=== PATIENT | female | born 1940 | race Caucasian/White ===

== ENCOUNTER 2017-06-25 18:58 | Emergency (ER) | payer MEDICARE, OTHER ==
[~2017-06-25] VITALS: Ht 165.1 cm; Wt 70.1 kg
[~2017-06-25 18:58] MED LIST: ASPI81TA2 PO; CALC-686 PO; CITA20TA PO; COU25 PO; COU5 PO; DIG125 PO; FLUT10.62 IH; FURO80TA PO; GLIM4TAB PO; LEVO25TA41 PO; MAGN200T3 PO; METO50TA PO; NORT50CA PO; OMEP20TA86 PO; POTA8CAP10 PO; ROPI1TAB2 PO
--- NOTE | 2017-06-25 19:00 | ED.REPORT ---
HPI-Chest Pain 40 and Over Date of Service Jun 25, 2017 ED Provider: Dr. Salinas Schmidt MD A 76 year old female with a history of hypertension, CAD s/p CABG and pacemaker placement presents to the ED via EMS with cheat pain that began approx. 1 hour prior to arrival. The patient reportedly took one dose of Nitro and aspirin following symptom onset and upon EMS arrival, her pain had completely resolved. She also endorses recent non-productive cough, intermittent fever and chills, and persistent diarrhea that has been chronic for the past few weeks. The patient does not typically experience chest pain and denies similar episodes of pain. She denies any shortness of breath, lower extremity swelling, dysuria, urinary frequency or urinary urgency. Nursing Notes Stated Complaint: CHEST PAIN Nursing Notes Reviewed: Yes Allergies: Coded Allergies: Penicillins (Verified Allergy, Unknown, 06/25/17) diphenhydramine (Verified Allergy, Unknown, 06/25/17) metformin (Verified Allergy, Unknown, 06/25/17) Uncoded Allergies: EPHEDRA (Allergy, Unknown, 06/25/17) Scheduled Aspirin-Expunged Drug, Do Not Renew! (Aspirin-Expunged Drug, Do Not Renew!) 81 Mg Tablet 81 MG PO DAILY Flavio Carb/Vitamin D3-Expunged, Do Not Renew! (Calcium 500 + D-Expunged, Do Not Renew!) 1 Each Tablet 1 EACH PO DAILY Citalopram-Expunged Drug, Do Not Renew! (Citalopram-Expunged Drug, Do Not Renew! ) 20 Mg Tablet 30 MG PO DAILY Digoxin-Expunged Drug, Do Not Renew! (Digoxin-Expunged Drug, Do Not Renew!) 125 Mcg Tablet 62.5 MCG PO 1/2 of 0.125 tab nae Fluticasone-Expunged Drug, Do Not Renew! (Flovent-Expunged Drug, Do Not Renew!) 13 Gm Aer.w.adap 220 MCG IH BID Furosemide-Expunged Drug, Do Not Renew! (Lasix-Expunged Drug, Do Not Renew!) 80 Mg Tablet 80 MG PO BID Glimepiride-Expunged Drug, Do Not Renew! (Glimepiride-Expunged Drug, Do Not Renew!) 4 Mg Tablet 4 MG PO DAILY Levothyroxine-Expunged Drug, Do Not Renew! (Levoxyl-Expunged Drug, Do Not Renew! ) 25 Mcg Tablet 25 MCG PO DAILY Magnesium-Expunged Drug, Do Not Renew! (Magnesium Oxide-Expunged Drug, Do Not Renew!) 200 Mg Tablet 400 MG PO BID Metoprolol Tart-Expunged Drug, Do Not Renew! (Metoprolol Tart-Expunged Drug, Do Not Renew!) 50 Mg Tablet 50 MG PO BID Nortriptyline-Expunged Drug, Do Not Renew! (Nortriptyline-Expunged Drug, Do Not Renew!) 50 Mg Capsule 50 MG PO qhs Omeprazole-Expunged Drug, Do Not Renew! (Omeprazole-Expunged Drug, Do Not Renew! ) 20 Mg Tablet.dr 20 MG PO BID Potassium Chl-Expunged Drug, Do Not Renew! (Potassium Chl-Expunged Drug, Do Not Renew!) 8 Meq Capsule.sa 20 MEQ PO DAILY Ropinirole-Expunged Drug, Do Not Renew! (Requip-Expunged Drug, Do Not Renew!) 1 Mg Tab 1 MG PO BID Warfarin Inactive Drug Do Not Use (Coumadin Inactive Drug Do Not Use) 2.5 Mg Tablet 2.5 MG PO , Warfarin Inactive Drug Do Not Use (Coumadin Inactive Drug Do Not Use) 5 Mg Tablet 5 MG PO ,,T,S,S General Time Seen by MD: 19:00 Chief Complaint Chest pain Hx Obtained From: Patient, Spouse, EMS Arrived By: Ambulance Sudden in Onset?: No Onset Occurred: 1 - 4 hours ago Symptom Duration: 1 - 15 minutes Location: : Chest left: Chest right Quality: Aching, Painful Radiation: : Does not radiate Migration/Movement: Reports: None Severity: Current: Mild Severity: Maximum: Moderate Associated with: Reports: Cough, non-productive, Fever, Denies: Shortness of Breath Pertinent Negative: Pt denies other symptoms Recent Healthcare: No recent doctor visit, No recent hospitalization Similar Sx Previous: No Risk Factors )( CAD Risk Stratification Known CAD Risk factors reviewed )( TAD Risk Stratification Risk factors reviewed )( PE Risk Stratification Risk factors reviewed Past Medical History Past Medical History Notes: Cardiology - Jonatan Past Medical History CAD Hypertension Pacemaker Past Surgical History Reports: CABG Reports: Pacemaker insertion Smoking History Never Smoker Social History Alcohol Use: Denies alcohol use Drug Use: Denies drug use Other Social History: Good social support, , Local resident Ambulatory Status Independent Review of Systems Constitutional: Reports: Chills, Fever (subjective) Respiratory: Reports: Non-productive cough, Denies: Shortness of breath Cardiovascular: Reports: Chest pain GI: Reports: Diarrhea (chronic) Musculoskeletal: Denies: Extremity swelling, Joint swelling Complete sys rev & neg: except as marked. Female: Denies: Dysuria, Urinary frequency, Urinary urgency Physical Exam Initial Vital Signs Vital Signs (First) Date Time Temp Pulse Resp B/P Pulse Ox O2 Delivery O2 Flow Rate FiO2 06/25/17 19:40 36.8 72 19 112/58 95 Room Air Initial VS: Reviewed Head / Eyes: Atraumatic, Normocephalic, PERRL Neck: Supple, Non-tender, Full range of motion Extremities: Vascular intact, Neuro intact, No swelling, No tenderness Skin: Warm, Dry, No cyanosis Neurologic: Alert, Oriented, Nonfocal Psychiatric: Mood/affect normal, Behavior normal, Normal thought content General/Constitutional: Awake, Alert, No acute distress Respiratory / Chest: Atraumatic, Breath sounds NL, Breath sounds = bilat, No respiratory distress Cardiovascular: Heart rate NL, Regular rhythm, Heart sounds NL, Peripheral circulation NL, Pulses = bilaterally Abdomen: Atraumatic, Soft, Non-tender, No guarding, No rebound Lower Extremity / Pelvis / MS: Atraumatic, Inspection NL, No swelling, Non- tender, Neurologic intact, Vascular intact Neurologic: Oriented X3, Speech NL, No motor deficits, No sensory deficits, CN II - XII intact Upper Extremity / MS: Atraumatic, Inspection NL, Neurologic intact, Vascular intact Interpretation & Diagnostics Lab Results Interpretation Result Diagram: 06/25/17199906/25/171999 Test 06/25/17 20:00 White Blood Count 6.2th/mm3 (3.8-10.1) Red Blood Count 4.27mil/mm3 (3.90-5.20) Hemoglobin 13.1g/dL (12.0-15.6) Hematocrit 39.1% (35.0-46.0) Mean Corpuscular Volume 91.6fL (81-100) Mean Corpuscular Hemoglobin 30.7pg (27.0-35.0) Mean Corpuscular Hemoglobin Concent 33.5% (32.0-37.0) Red Cell Distribution Width 13.6% (12.3-15.4) Platelet Count 174bil/L (150-400) Neutrophils (%) (Auto) 62.1% (40-74) Lymphocytes (%) (Auto) 22.2% (14-46) Monocytes (%) (Auto) 12.0% (4-12) Eosinophils (%) (Auto) 3.0% (0-5) Basophils (%) (Auto) 0.5% (0-3) Prothrombin Time 27.4sec (8.1-12.5) Prothromb Time International Ratio 2.51ratio Sodium Level 139mEq/L (134-144) Potassium Level 4.2mEq/L (3.5-5.2) Chloride Level 98mEq/L (97-108) Carbon Dioxide Level 29mmol/L (18-29) Blood Urea Nitrogen 23mg/dL (8-27) Creatinine 1.11mg/dL (0.57-1.00) Estimat Glomerular Filtration Rate 68mL/min (>59) Glucose Level 170mg/dL (60-99) Calcium Level 8.7mg/dL (8.5-10.1) Magnesium Level 2.0mg/dL (1.6-2.6) Total Bilirubin 0.6mg/dL (0.0-1.2) Aspartate Amino Transf (AST/SGOT) 24U/L (0-50) Alanine Aminotransferase (ALT/SGPT) 21U/L (0-32) Alkaline Phosphatase 70U/L (25-165) Troponin T < 0.010ug/L (0.0-0.011) Pro-B-Type Natriuretic Peptide 2423pg/mL (0-738) Total Protein 6.3g/dL (6.4-8.4) Albumin 4.1g/dL (3.4-5.0) Thyroid Stimulating Hormone (TSH) 2.830uIU/mL (0.450-4.500) ECG Interpretation ECG Interpretation: Afib/Atrial flutter V-paced rhythm Rate 76 bpm Time: 19:25 Interpreted by: ED physician X-Ray Chest Interpretation Chest Xray Interpretation: IMPRESSION: No acute pulmonary process. Dictated by: Roxana Bray M.D. on 06/25/2017 at 20:00 Interpretation / Wet Read by: Interpret - Radiologist Re-Eval/Medical Decision Med Decision/Clinical Course Unstable angina in the setting of an elderly woman with known CAD and history of coronary artery bypass grafting. We'll plan to admit for provocative cardiac testing. Time of Eval: 20:32 Patient Status: Condition improved Re-Evaluation/Progress Note: Upon recheck, the patient's symptoms have improved. She is informed of her results and the intended treatment plan. All questions are addressed at this time and she is agreeable to the current plan. Consultation : Consulted With: Hospitalist Fishing Manager: Will see patient, Agrees with eval, Agrees with plan, Accepts admit Counseled Regarding: Diagnosis, Lab results, Need for admission Discharge & Departure Primary Impression: Unstable angina Disposition: ADMITTED TO HOSPITAL Discharge Condition All VS Reviewed: Yes Condition: Improved Referrals: [facility] Scribe Attestation Portions of this note were transcribed by Funmilayo Matt. I, Dr. Tyler Schmidt personally performed the history, physical exam and medical decision-making; I reviewed and confirmed the accuracy of the information in the transcribed note. Signed by Ty Seymour, 06/25/17. Salinas Sharma DO Jun 25, 2017 19:00 FUNMILAYO MATT Jun 25, 2017 19:10
[2017-06-25 19:40] VITALS: BP 112/58; PULSE 72; RESP 19; O2SAT 95
--- NOTE | 2017-06-25 20:02 | DRSVH ---
PROCEDURE: X-RAY CHEST ONE VIEW, PORTABLE ([id number]) INDICATIONS: chest pain TECHNIQUE: One view of the chest was acquired. COMPARISON: [facility], , CHEST 1VW (PORTABLE), 02/08/2011, 10:49. FINDINGS: Surgical changes and devices: Pacemaker and sternal wires are unchanged. Lungs and pleura: No pleural effusions or pneumothorax. Lungs are clear. Mediastinum: Mediastinal contours appear normal. Heart size is normal. Bones and chest wall: No suspicious bony lesions. Overlying soft tissues appear unremarkable. IMPRESSION: No acute pulmonary process. Dictated by: Roxana Bray M.D. on 06/25/2017 at 20:00 Approved by: Roxana Bray M.D. on 06/25/2017 at 20:00
[2017-06-25 20:04] LABS: BASOPHILS % (AUTO) 0.5 % (0-3); Mean Corpuscular Hemoglobin 30.7 pg (27.0-35.0); Mean Corpuscular Volume 91.6 fL (81-100); NEUTROPHILS % (AUTO) 62.1 % (40-74); Platelet Count 174 bil/L (150-400)
[2017-06-25 20:27] LABS: TROPONIN T < 0.010 ug/L (0.0-0.011)
[2017-06-25 20:34] LABS: INR 2.51 ratio
[2017-06-25] MEDS ORDERED: Alum-Mag Hydrox-Simeth 30 mL Suspension PO PRN (21:25)
[2017-06-25] MEDS ORDERED: Polyethylene Glycol (PEG) 17 Gm Powder PO PRN (21:25)
[2017-06-25] MEDS ORDERED: Senna-Docusate 8.6-50 mg Tablet PO PRN (21:25)
[2017-06-25] MEDS ORDERED: Atropine 1 mg/10 mL (Code) Syringe IVPUSH PRN (21:25)
[2017-06-25] MEDS ORDERED: Ondansetron 2 mg/mL 2 mL Inj IVPUSH PRN (21:25)
[2017-06-25 22:12] VITALS: BP 141/54; PULSE 60; O2SAT 97
[2017-06-25 22:33] VITALS: BP 151/83; PULSE 68; RESP 20; O2SAT 97
[2017-06-25 22:39] VITALS: PULSE 70
[2017-06-25] MEDS: Sodium Chloride LOK Flush 10 mL Syringe IVFLUSH SCH (23:07)
--- NOTE | 2017-06-25 23:25 | PCM.HPMED ---
Subjective Date of Service Jun 25, 2017 Primary Provider: Admitting Physician: Primary Care Physician: Maci Ruiz MD Attending Physician: Chief Complaint: Chest pain History of Present Illness: Aundrea Acuña is a 76-year-old woman with past medical is significant for atrial fibrillation on warfarin status post pacemaker, CAD status post four- vessel bypass in 1984, diabetes mellitus type II non-insulin using, hypertension , and likely early onset dementia who presents with her by EMS due to chest pressure. Chest pressure radiating around 1700. Pressure is located in the middle of her chest and does not radiate. It is associated with mild shortness of breath but no lightheadedness, dizziness, diaphoresis, palpitations , or nausea. She has had a few similar episodes in the past that resolved without intervention. To alleviate the pain with this episode the patient's gave her 1 tablet nitroglycerin and baby aspirin. Symptoms quickly resolved within 10-15 minutes when EMS arrived. On arrival EMS stated vitals were stable and EKG showed no ischemic changes. The following history was obtained from the as the patient appears to have some degree of cognitive decline as she continually states she cannot remember and requests to know what time it is repeatedly. states this is typical and her current baseline. states that the patient's CABG was in 1984 and they have been following with a enrollment specialist down in [place]. Marcie Cheung. Last echocardiogram and pacemaker check was less than a month ago. She has not had a stress test in the last year or 2. The patient's has noted some progressive decline over the last year with her becoming weaker and more fatigued. Intermittently requiring use of a walker. He denies any chest pain associated with these episodes of fatigue and weakness. The patient reported diarrhea and intermittent fever and chills to the ED physician. At the time of my history these symptoms were denied by the patient and her . She also denies any dysuria, hematuria, abdominal pain, nausea , vomiting, or shortly swelling. She does note a chronic cough at baseline. On presentation to the ED patient's vitals were temperature 36.8, pulse 72, respiratory rate 19 with an O2 sat of 95%, and blood pressure 112/58. Initial labs revealed a creatinine of 1.11, BUN of 23, glucose of 170, negative troponin , and an unremarkable CBC. EKG showed no ischemic changes. Review of Systems: Comprehensive review of systems was conducted with the patient and found to be negative except as noted above in HPI. Allergies Coded Allergies: Penicillins (Verified Allergy, Unknown, 06/25/17) diphenhydramine (Verified Allergy, Unknown, 06/25/17) metformin (Verified Allergy, Unknown, 06/25/17) Uncoded Allergies: EPHEDRA (Allergy, Unknown, 06/25/17) Home Medications Aspirin 81 mg daily Citalopram daily Digoxin daily Fluticasone 1 puff daily Furosemide 80 mg twice a day Glimepiride Levothyroxine daily Metoprolol tartrate 50 mg twice a day Omeprazole 20 mg twice a day Warfarin 3 mg Monday and 2.5 mg Monday, Monday, , Monday Ropinirole 1 mg twice a day PMH CAD status post CABG Hypertension Atrial fibrillation status post Pacemaker Diabetes mellitus type II Restless legs Severe mitral regurgitation Depression Carotid artery stenosis Surgical History CABG - 1984 Pacemaker insertion Cholecystectomy Bilateral carotid endarterectomy Family History Father and mother of old age. Social History Hx Alcohol Use: No Hx Substance Use: No Hx Tobacco Use: Yes Smoking Status: Former Smoker (quit in 1984), Never Smoker Years of Smokin Living Arrangement: with Family Exam Vital Signs Vital Sign - Last Date Time Temp Pulse Resp B/P Pulse Ox O2 Delivery O2 Flow Rate FiO2 06/25/17 19:40 36.8 72 19 112/58 95 Room Air Exam General: Elderly woman in no acute distress. HEENT: Normocephalic, atraumatic. External ears without defect. Pupils equal, round, and reactive to light and accommodation. Dry oral mucosa. Anicteric sclerae, moist conjunctivae, and no lid lag. Edentulous. Neck: Supple with full range of motion. No jugular venous distension. No hepatojugular reflex. Cardiovascular: Irregularly, irregular rhythm with a 2/6 systolic murmur. Pulmonary: Clear to auscultation bilaterally with no crackles, wheezes, or rhonchi. Normal respiratory effort with no use of accessory muscles. Abdomen: Bowel tones present. Soft, nontender, nondistended. No hepatosplenomegaly or masses appreciated. Extremities: No clubbing, cyanosis, edema, or lymphadenopathy appreciated. Skin: Normal temperature, decreased skin turgor. No rash, ulcers, or subcutaneous nodules appreciated. Neurological: Cranial nerves grossly intact. Normal muscle strength, tone, and bulk. Reflexes, coordination, and sensory function within normal limits. Intermittently uses a walker to ambulate. Psychiatric: Alert and oriented to person but not time or place. Lab and Diagnostics Result Diagram: 06/25/17199906/25/171999 X-Rays, CTs and MRIs X-RAY CHEST ONE VIEW, PORTABLE ([id number]) IMPRESSION: No acute pulmonary process. Dictated by: Roxana Bray M.D. on 06/25/2017 at 20:00 Approved by: Roxana Bray M.D. on 06/25/2017 at 20:00 12-lead ECG Atrial fibrillation V paced Rate of 76 Assessment & Plan Aundrea Acuña is a 76-year-old woman with past medical is significant for atrial fibrillation on warfarin status post pacemaker, CAD status post four- vessel bypass in 1984, diabetes mellitus type II non-insulin using, hypertension , and likely early onset dementia who presents with her by EMS due to chest pressure. Unstable angina in the setting of CAD status post four-vessel bypass in 1984, present on admission, active. - ECG showed no ischemic changes. - Initial troponin less than 0.010. Trending troponins. - Nitroglycerin taken prior to EMS arrival with resolution of symptoms. - Aspirin 81 mg initially received and continued daily. - Metoprolol tartrate and nitroglycerin held due to likely need for stress test in the morning. - Lisinopril 5 mg given. - Patient not on a statin at baseline. Unclear reasoning as she is followed by a enrollment specialist. Day team to determine necessity. - Morphine as needed. - Lipid panel pending. - Supplemental oxygen as needed. - Stress test ordered for the morning. Presumed CHF secondary to severe mitral regurgitation, present on admission, active. - Patient follows with enrollment specialist, Dr. Jack, in [place]. - Recent echocardiogram less than one month ago. Patient and were told no significant changes. - No recent medication changes. - Furosemide 80 mg twice a day held as patient appears somewhat hypovolemic. - Held metoprolol tartrate 50 mg twice a day due to stress test in the morning. - Medication regimen does not include an ACEI or an ARB. No known allergy. - May consider echocardiogram although she does not appear to be decompensated at this time. Atrial fibrillation status post pacemaker in 2011 on chronic anticoagulation, present on admission, active. - Home medications include: Metoprolol tartrate 50 mg twice day and digoxin 0.0625 daily. Metoprolol held due to stress test tomorrow morning. - INR 2.51 on admission. - Warfarin dosing per pharmacy. Presumed chronic kidney disease, present on admission, active. - Etiology likely secondary to hypertension. Patient's does not know what the baseline creatinine is but has been told it is slightly elevated. - On admission creatinine 1.11. Baseline creatinine unknown. - Avoid nephrotoxic medications. - Repeat BMP in the morning. Chronic stable conditions Diabetes mellitus type II - Glimepiride held. - This patient will be nothing by mouth low-dose correctional scale with NPH. - Hemoglobin A1c pending. Hypothyroidism - Continue home medication: Levothyroxine. - TSH 2.830 on admission. GERD - Continue home medication: Omeprazole 20 mg twice a day. Restless leg syndrome - Continue home medication: Ropinirole 1 mg twice a day. Depression - Continue home medication: Citalopram 20 mg daily. Cognitive decline - Patient's states there is not an official diagnosis of dementia but that her cognitive ability has slowly declined over the past few years. CODE STATUS not established as the patient's left prior to this discussion. When patient was directly asked she became very emotional and anxious. Attempted to contact the but was unable to reach. PRN Medications - Acetaminophen as needed for mild pain/fever/headache - Bowel regimen as needed - Antiemetic as needed Patient is admitted under inpatient status with expected length of stay greater than 2 midnights due to severity of presenting symptoms, risk of adverse event, and complexity of treatment plan. Pain Evaluation: Adequate Pain Control GI Prophylaxis: Proton Pump Inhibitor VTE Prophylaxis: Theraputic Anticoag with Warfarin VTE Mechanical Devices: Intermittant Pneumatic CD Resuscitation Status: CPR: Attempt Resuscitation Attending Statement The patient was seen and examined together with Dr. Montes De Oca on 06/26 and I agree with the history, exam and plan as outlined in the note above. REMA MONTES DE OCA DO Jun 25, 2017 21:23 Royce Santana MD Jun 26, 2017 06:16
[2017-06-25 23:31] LABS: APPEARANCE,URINE CLEAR (CLEAR,HAZY); COLOR,URINE YELLOW (YELLOW); OCCULT BLOOD,URINE SMALL (NEGATIVE); PH,URINE 5.5 (5.0-8.0); UROBILINOGEN,URINE NORMAL (NORMAL)
[2017-06-25] MEDS ORDERED: ATOR80TA PO (23:34)
[2017-06-26] VITALS (8 sets, daily range): BP systolic 129–138; BP diastolic 61–79; PULSE 60–93; RESP 18–20; O2SAT 91–96
[2017-06-26] MEDS: Insulin Human REGular 300 Unit/3 mL Inj SUBQ SCH ×4 (02:15→21:12)
--- NOTE | 2017-06-26 05:32 | NUR ---
ADmit/NOC PT admitted from ED around 2200. PT presented to ED via EMS for reported CP unresolved with ASA and nitro at home. BY the time pt arrived to ED her CP had resolved. PT is oriented only to self which per her is her baseline. PT is a SBA to restroom. PT is a little tremulous/shaky with her gait. PT states "I have been having this for a little while." Referring to her tremors. PT has hx of afib, but is Vpaced on tele in the 60's. Denies any CP. Denies any SOB. IV heplocked in LUE. VS WNL. PT NPO for stress test today. BG was 127 at 0230. NO s/s insulin administered. Voids small amounts of bree colored urine. UA showed trace WBC's and is currently being cultured. Warfarin given at HS. Dose verified by . stated that pt is DNR/DNI and will bring in the forms today when he visits. Serial troponins done and both have been negative so far. WIll continue with current POC at this time.
[2017-06-26 06:20] LABS: BASOPHILS % (AUTO) 0.5 % (0-3); EOSINOPHILS % (AUTO) 2.7 % (0-5); MONOCYTES % (AUTO) 9.4 % (4-12); Mean Corpuscular Hemoglobin 30.9 pg (27.0-35.0); Mean Corpuscular Volume 92.3 fL (81-100); NEUTROPHILS % (AUTO) 63.3 % (40-74); Platelet Count 168 bil/L (150-400)
[2017-06-26 06:41] LABS: INR 2.44 ratio
[2017-06-26] MEDS: Pantoprazole 20 mg ER24 Tablet PO SCH ×2 (07:54→21:11)
[2017-06-26] MEDS: Sodium Chloride LOK Flush 10 mL Syringe IVFLUSH SCH ×2 (07:57→16:52)
[2017-06-26] MEDS ORDERED: [UNRECOGNIZED DRUG - REMARK] PO SCH (08:30)
[2017-06-26] MEDS ORDERED: ALBU8.5H2 INH (10:18)
[2017-06-26] MEDS ORDERED: ATOR80TA77 PO (10:19)
[2017-06-26] MEDS ORDERED: ASPI-973 PO (10:19)
[2017-06-26] MEDS ORDERED: FIBER 0.52 GM PO (10:21)
[2017-06-26] MEDS ORDERED: Ergocalciferol PO (10:21)
[2017-06-26] MEDS ORDERED: DIGO125T73 PO (10:21)
[2017-06-26] MEDS ORDERED: FLUO40CA PO (10:22)
[2017-06-26] MEDS ORDERED: FURO-128 PO (10:22)
[2017-06-26] MEDS ORDERED: ISOS30TA4 PO (10:24)
[2017-06-26] MEDS ORDERED: GLIM1TAB PO (10:24)
[2017-06-26] MEDS ORDERED: METO100T3 PO (10:24)
[2017-06-26] MEDS ORDERED: LEVO25TA5 PO (10:24)
[2017-06-26] MEDS ORDERED: POTA20TA7 PO (10:25)
[2017-06-26] MEDS ORDERED: WARF5TAB7 PO ×2 (10:27)
[2017-06-26] MEDS ORDERED: HYDR-3740 PO (10:28)
[2017-06-26] MEDS ORDERED: NITR0.4T38 SL (10:30)
[2017-06-26] MEDS ORDERED: ACET325T51 PO (10:30)
--- NOTE | 2017-06-26 10:43 | NUR ---
Med Rec Med Rec completed. Pt's provided a detailed list of all medications. All medications reviewed with patient's who administers her medication. Paged Hospitalist on Blue Team to notify him that Med Rec has been completed.
--- NOTE | 2017-06-26 13:41 | NUR ---
Social Work-initial assessment/ readiness for discharge/ multidisciplinary rounds: Data:See initial assessment. Pt is a 76 y/o female who was admitted on 06/25/17 for unstable angina per H&P. Pt's insurance is [employer] and PCP is Maci Calhoun MD. EMR Reviewed. SW met with pt and at bedside, SW role explained. SW met with pt and at bedside, SW role explained. Pt is alert and oriented x3. Pt resides at home with her where she remains independent with ADls. Pt uses a fww at baseline and does not drive. Pt has no HH or SNF history. Pt has no buttermaker care insurance or VA benefits. SW discussed DPOA/advanced directive, confirms this has been completed, SW encouraged a copy to be brought in. Pt's is able to transport pt home at discharge. SW provided them with discharge planning checklist and encouraged them to call with any questions, phone number provided on white board in room. No anticipated discharge needs. SW will continue to follow if needs arise. Assessment:Pt who is independent at baseline. Plan:Pt to discharge home when medically stable via POV. No anticipated discharge needs. SW will continue to follow if needs arise. JULIEN Rae Addendum: 06/26/17 at 1347 by BRYSON MARI Amended: Links added.
--- NOTE | 2017-06-26 14:30 | NUR ---
off unit Pt went to [facility] for nuc med stress test. No s/s of distress or chest pain.
--- NOTE | 2017-06-26 15:15 | NUR ---
Case Management- LEMA explained and signed/timed by patient. Copy given to patient. Original placed in chart. Andreina Carrera RN, CCM
--- NOTE | 2017-06-26 16:59 | PCM.PNMED ---
Subjective Date of Service Jun 26, 2017 Subjective awaits stress test today denied any chest pain overnight Exam Vital Signs Vital Sign - Last Date Time Temp Pulse Resp B/P Pulse Ox O2 Delivery O2 Flow Rate FiO2 06/26/17 12:40 36.6 65 20 133/79 91 Room Air Intake and Output 06/25/17 06/25/17 06/26/17 Cumulative From/Thru 15:00 23:00 07:00 06/25/17 19:40 - 06/26/17 06:05 Intake Total 0 ml 0 ml Output Total 325 ml 325 ml Balance -325 ml -325 ml Intake Oral 0 ml 0 ml Output Urine Total 325 ml 325 ml Exam NAD AAOX2, knows [facility], name MMM, no JVD RRR nl s1, s2 no mrg CTAB no w,c S,ND,NT,BS+ IVs and Medications Medications Reviewed: Medications were reviewed in detail Lab and Diagnostics Result Diagram: 06/26/17 0535 06/26/17 0535 X-Rays, CTs and MRIs X-RAY CHEST ONE VIEW, PORTABLE ([id number]) IMPRESSION: No acute pulmonary process. Dictated by: Roxana Bray M.D. on 06/25/2017 at 20:00 Approved by: Roxana Bray M.D. on 06/25/2017 at 20:00 12-lead ECG Atrial fibrillation V paced Rate of 76 Assessment & Plan Aundrea Acuña is a 76-year-old woman with past medical is significant for atrial fibrillation on warfarin status post pacemaker, CAD status post four- vessel bypass in 1984, diabetes mellitus type II non-insulin using, hypertension , and likely early onset dementia who presents with her by EMS due to chest pressure. Unstable angina in the setting of CAD status post four-vessel bypass in 1984, present on admission, active. ECG showed no ischemic changes, serial trop negative. Nitroglycerin taken prior to EMS arrival with resolution of symptoms. - Aspirin 81 mg initially received and continued daily. - will continue Metoprolol tartrate, Lisinopril 5 mg given, start mod intensity statin - Morphine as needed. - Supplemental oxygen as needed. - awaits Stress test today Presumed CHF secondary to severe mitral regurgitation, present on admission, active. - Patient follows with well tender, Dr. Jack, in [place]. - Recent echocardiogram less than one month ago. Patient and were told no significant changes. - No recent medication changes. - Furosemide 80 mg twice a day held as patient appears somewhat hypovolemic. - continue metoprolol tartrate 50 mg twice a day - Medication regimen does not include an ACEI or an ARB. No known allergy. - TTE ordered Atrial fibrillation status post pacemaker in 2011 on chronic anticoagulation, present on admission, active. - Home medications include: Metoprolol tartrate 50 mg twice day and digoxin 0.0625 daily. Metoprolol held due to stress test tomorrow morning. - INR 2.51 on admission. - Warfarin dosing per pharmacy. Presumed chronic kidney disease, present on admission, active. - Etiology likely secondary to hypertension. Patient's does not know what the baseline creatinine is but has been told it is slightly elevated. - On admission creatinine 1.11. Baseline creatinine unknown. - Avoid nephrotoxic medications. - Repeat BMP in the morning. Chronic stable conditions Diabetes mellitus type II - Glimepiride held. - This patient will be nothing by mouth low-dose correctional scale with NPH. - Hemoglobin A1c pending. Hypothyroidism - Continue home medication: Levothyroxine. - TSH 2.830 on admission. GERD - Continue home medication: Omeprazole 20 mg twice a day. Restless leg syndrome - Continue home medication: Ropinirole 1 mg twice a day. Depression - Continue home medication: Citalopram 20 mg daily. Cognitive decline - Patient's states there is not an official diagnosis of dementia but that her cognitive ability has slowly declined over the past few years. CODE STATUS not established as the patient's left prior to this discussion. When patient was directly asked she became very emotional and anxious. Attempted to contact the but was unable to reach. PRN Medications - Acetaminophen as needed for mild pain/fever/headache - Bowel regimen as needed - Antiemetic as needed dispo: likely tomorrow home GI Prophylaxis: Proton Pump Inhibitor VTE Prophylaxis: Theraputic Anticoag with Warfarin VTE Mechanical Devices: Intermittant Pneumatic CD Resuscitation Status: CPR: Attempt Resuscitation Time spent 35min Esther Crisostomo MD Jun 26, 2017 16:53
--- NOTE | 2017-06-26 17:45 | NUR ---
Shift note Pt denied any cp or pain at all during shift. Pt is very forgetful and can not remember to use call light at all; A&OX1. Pt has been cooperative with care all shift. has been at bedside. Pt has unsteady gait and mildly tremulous at baseline per .
--- NOTE | 2017-06-26 23:43 | NUR ---
NOC Activity Explained to pt current plan for stress test in am. Metoprolol held and will be put on NPO after midnight. Pt appears to be confuse and is getting up frequently without using her call light. Bed alarm on for safety. Intentional hourly rounding ongoing.
[2017-06-27] MEDS: Sodium Chloride LOK Flush 10 mL Syringe IVFLUSH SCH ×2 (00:30→09:13)
[2017-06-27] MEDS: Insulin Human REGular 300 Unit/3 mL Inj SUBQ SCH ×3 (02:30→14:54)
[2017-06-27 05:47] LABS: INR 2.05 ratio
[2017-06-27] MEDS: Pantoprazole 20 mg ER24 Tablet PO SCH (08:39)
[2017-06-27 08:45] VITALS: BP 151/77; PULSE 67; RESP 19; O2SAT 94
[2017-06-27 10:16] VITALS: PULSE 75
[2017-06-27 12:37] VITALS: BP 141/81; PULSE 64; RESP 19; O2SAT 97
--- NOTE | 2017-06-27 15:37 | NUR ---
Social Work-readiness for discharge/multidisciplinary rounds: Data:EMR reviewed. Pt is on day 2 of hospitalization for unstable angina per H&P. Pt is not medically stable anticipate later today or tomorrow. Awaiting results of pending resting portion of the stress test. Pt's has questions about OBs status. SW asked UR RN to come and speak with pt and . UR RN states pt and would like rashaad care application. SW met with pt and at bedside, SW role explained. SW provided them with rashaad care application, no other questions or concerns. Per RN notes, pt has been up independent in her room. No anticipated discharge needs. SW will continue to follow if needs arise. Assessment:Pt who is independent at baseline. Plan:Pt to discharge home when medically stable via POV. No anticipated discharge needs. SW will continue to follow if needs arise. JULIEN Rae
--- NOTE | 2017-06-27 16:08 | PCM.DIMED ---
Discharge Instructions Date of Service Jun 26, 2017 Dates of Hospitalization Jun 25, 2017 at 21:36 Discharge Diagnosis Discharge Diagnosis acute dx probable unstable angina in the setting of CAD status post four-vessel bypass in 1984, negative ischemic w/u chronic dx Presumed CHF secondary to severe mitral regurgitation, Atrial fibrillation status post pacemaker in 2011 on chronic anticoagulation, Presumed chronic kidney disease, Diabetes mellitus type II Hypothyroidism GERD Restless leg syndrome Depression Cognitive dysfunction Diet Discharge Diet: Low fat, Low Sodium, Heart Healthy Activity Discharge Activity: No restrictions Call your provider Call your provider for: Chest pain Patient Instructions Patient Instructions You were hospitalized because of chest pain, your serial blood works, EKG and stress test didn't show any signs of heart attack. Please follow up with your primary doctor in 1-2weeks Follow-up Provider: Maci Ruiz MD Follow-up with PCP in: 1 week Esther Crisostomo MD Jun 26, 2017 09:30
--- NOTE | 2017-06-27 16:40 | PCM.PHAPRO ---
Progress Chest pain Date Jun 26-Jun 27-Jun INR 2.51 2.44 2.05 INR change -0.07 -0.39 Warf Dose 2.5 3 3.5 John Aguilera Pharm.D Jun 27, 2017 16:40
--- NOTE | 2017-06-27 16:49 | NUR ---
DISCHARGE Patient discharged home at 1645 ambulated off floor accompanied by RN and . Vitals stable, denies pain and in no apparent distress. IV discontinued intact, all belongings returned. All instructions for diet, activity, medications and follow-up reviewed with patient who reports understanding.
--- NOTE | 2017-06-27 16:51 | NUR ---
Social Work-discharge: Data:EMR Reviewed. Pt is on day 2 of hospitalization for unstable angina per H&P. Pt is medically stable for discharge. Pt has been up independent in her room. SW confirmed with pt and at bedside, no needs. No discharge needs identified. All updated and agreeable to plan. Assessment:Pt who is independent at baseline. Plan:Pt to discharge home today via POV. No discharge needs identified. All updated and agreeable to plan. JULIEN Rae
--- NOTE | 2017-06-27 17:07 | PCM.DC.MED ---
Discharge Summary Date of Service Jun 27, 2017 Dates of Hospitalization Date of Hospital Admission Jun 25, 2017 at 21:36 Date of Discharge: Jun 27, 2017 Providers: Admitting Physician: Royce Santana MD Primary Care Physician: Maci Ruiz MD Attending Physician: Esther Crisostomo MD Diagnosis at Time of Discharge Diagnosis at Time of Discharge acute dx probable unstable angina in the setting of CAD status post four-vessel bypass in 1984, negative ischemic w/u chronic dx Presumed CHF secondary to severe mitral regurgitation, Atrial fibrillation status post pacemaker in 2011 on chronic anticoagulation, Presumed chronic kidney disease, Diabetes mellitus type II Hypothyroidism GERD Restless leg syndrome Depression Cognitive dysfunction Procedures XRay, CTs & MRIs X-RAY CHEST ONE VIEW, PORTABLE ([id number]) IMPRESSION: No acute pulmonary process. Dictated by: Roxana Bray M.D. on 06/25/2017 at 20:00 Approved by: Roxana Bray M.D. on 06/25/2017 at 20:00 ECG 12 Lead Atrial fibrillation V paced Rate of 76 Brief History History of present illness obtained by on 06/25 Aundrea Acuña is a 76-year-old woman with past medical is significant for atrial fibrillation on warfarin status post pacemaker, CAD status post four- vessel bypass in 1984, diabetes mellitus type II non-insulin using, hypertension , and likely early onset dementia who presents with her by EMS due to chest pressure. Chest pressure radiating around 1700. Pressure is located in the middle of her chest and does not radiate. It is associated with mild shortness of breath but no lightheadedness, dizziness, diaphoresis, palpitations , or nausea. She has had a few similar episodes in the past that resolved without intervention. To alleviate the pain with this episode the patient's gave her 1 tablet nitroglycerin and baby aspirin. Symptoms quickly resolved within 10-15 minutes when EMS arrived. On arrival EMS stated vitals were stable and EKG showed no ischemic changes. The following history was obtained from the as the patient appears to have some degree of cognitive decline as she continually states she cannot remember and requests to know what time it is repeatedly. states this is typical and her current baseline. states that the patient's CABG was in 1984 and they have been following with a manager hair down in Dr. Marcie Cheung. Last echocardiogram and pacemaker check was less than a month ago. She has not had a stress test in the last year or 2. The patient's has noted some progressive decline over the last year with her becoming weaker and more fatigued. Intermittently requiring use of a walker. He denies any chest pain associated with these episodes of fatigue and weakness. The patient reported diarrhea and intermittent fever and chills to the ED physician. At the time of my history these symptoms were denied by the patient and her . She also denies any dysuria, hematuria, abdominal pain, nausea , vomiting, or shortly swelling. She does note a chronic cough at baseline. On presentation to the ED patient's vitals were temperature 36.8, pulse 72, respiratory rate 19 with an O2 sat of 95%, and blood pressure 112/58. Initial labs revealed a creatinine of 1.11, BUN of 23, glucose of 170, negative troponin , and an unremarkable CBC. EKG showed no ischemic changes. Hospital Course Aundrea Acuña is a 76-year-old woman with past medical is significant for atrial fibrillation on warfarin status post pacemaker, CAD status post four- vessel bypass in 1984, diabetes mellitus type II non-insulin using, hypertension , and likely early onset dementia who presents with her by EMS due to chest pressure. Although patient is a poor candidate for invasive studies given age, dementia, pt and were interested in further ischemic w/u, ECG showed no ischemic changes, serial trop were negative. Nitroglycerin taken prior to EMS arrival with resolution of symptoms. pt remained asymptomatic throughout hospitalization. Stress test 2day protocol showed fixed defect, resulted from previous CAD, pt deemed safe for d/c Unstable angina in the setting of CAD status post four-vessel bypass in 1984, present on admission, active. ECG showed no ischemic changes, serial trop negative. Nitroglycerin taken prior to EMS arrival with resolution of symptoms. - Aspirin 81 mg initially received and continued daily. - will continue Metoprolol tartrate, Lisinopril 5 mg given, start mod intensity statin - Morphine as needed. - Supplemental oxygen as needed. - awaits Stress test today Presumed CHF secondary to severe mitral regurgitation, present on admission, active. - Patient follows with manager hair, Dr. Jack, in [place]. - Recent echocardiogram less than one month ago. Patient and were told no significant changes. - No recent medication changes. - Furosemide 80 mg twice a day held as patient appears somewhat hypovolemic. - continue metoprolol tartrate 50 mg twice a day - Medication regimen does not include an ACEI or an ARB. No known allergy. - TTE ordered Atrial fibrillation status post pacemaker in 2011 on chronic anticoagulation, present on admission, active. - Home medications include: Metoprolol tartrate 50 mg twice day and digoxin 0.0625 daily. Metoprolol held due to stress test tomorrow morning. - INR 2.51 on admission. - Warfarin dosing per pharmacy. Presumed chronic kidney disease, present on admission, active. - Etiology likely secondary to hypertension. Patient's does not know what the baseline creatinine is but has been told it is slightly elevated. - On admission creatinine 1.11. Baseline creatinine unknown. - Avoid nephrotoxic medications. - Repeat BMP in the morning. Chronic stable conditions Diabetes mellitus type II - Glimepiride held. - This patient will be nothing by mouth low-dose correctional scale with NPH. - Hemoglobin A1c pending. Hypothyroidism - Continue home medication: Levothyroxine. - TSH 2.830 on admission. GERD - Continue home medication: Omeprazole 20 mg twice a day. Restless leg syndrome - Continue home medication: Ropinirole 1 mg twice a day. Depression - Continue home medication: Citalopram 20 mg daily. Cognitive decline - Patient's states there is not an official diagnosis of dementia but that her cognitive ability has slowly declined over the past few years. CODE STATUS not established as the patient's left prior to this discussion. When patient was directly asked she became very emotional and anxious. Attempted to contact the but was unable to reach. PRN Medications - Acetaminophen as needed for mild pain/fever/headache - Bowel regimen as needed - Antiemetic as needed dispo: likely tomorrow home Exam Vital Signs (Last) Date Time Temp Pulse Resp B/P Pulse Ox O2 Delivery O2 Flow Rate FiO2 06/27/17 12:37 36.5 64 19 141/81 97 Room Air Exam NAD, comfortably laying down on the bed no JVD, MMM, no LAD RRR, nl s1, s2 no mrg CTAB, no w,c S,ND,NT,normoactive BS+ warm, no edema, pulses 2/2 Test 06/25/17 20:00 06/25/17 23:21 06/26/17 01:50 06/26/17 05:35 Hemoglobin A1c 6.4% (4.8-5.6) Magnesium Level 2.0mg/dL (1.6-2.6) Total Bilirubin 0.6mg/dL (0.0-1.2) Aspartate Amino Transf (AST/SGOT) 24U/L (0-50) Alanine Aminotransferase (ALT/SGPT) 21U/L (0-32) Alkaline Phosphatase 70U/L (25-165) Pro-B-Type Natriuretic Peptide 2423pg/mL (0-738) Total Protein 6.3g/dL (6.4-8.4) Albumin 4.1g/dL (3.4-5.0) Thyroid Stimulating Hormone (TSH) 2.830uIU/mL (0.450-4.500) Urine Color Yellow (YELLOW) Urine Appearance Clear (CLEAR,HAZY) Urine pH 5.5 (5.0-8.0) Urine Specific [place] 1.025 (1.003-1.035) Urine Protein Negativemg/dL (NEG,TRACE) Urine Glucose (UA) Negativemg/dL (NEGATIVE) Urine Ketones Negativemg/dL (NEGATIVE) Urine Occult Blood Small (NEGATIVE) Urine Nitrite Negative (NEGATIVE) Urine Bilirubin Negative (NEGATIVE) Urine Urobilinogen Normalmg/dL (NORMAL) Urine Leukocyte Esterase Trace (NEGATIVE) Urine RBC 0-2/hpf (0-2) Urine WBC 0-5/hpf (0-5) Urine Epithelial Cells Moderate/hpf (NONE-MOD) Urine Crystals None seen (NONE SEEN) Urine Bacteria Few/hpf (NONE-FEW) Urine Hyaline Casts >20/lpf (NONE) Urine Granular Casts None seen (NONE SEEN) Urine Waxy Casts None seen (NONE SEEN) Urine Red Blood Cell Casts None seen (NONE SEEN) Urine White Blood Cell Casts None seen (NONE SEEN) Urine Mucus None seen (None Seen) Urine Trichomonas None seen (NONE SEEN) Urine Yeast None (NONE SEEN) Urinalysis Comment None Urine Culture Reflexed Indicated Troponin T 0.010ug/L (0.0-0.011) White Blood Count 6.3th/mm3 (3.8-10.1) Red Blood Count 4.04mil/mm3 (3.90-5.20) Hemoglobin 12.5g/dL (12.0-15.6) Hematocrit 37.3% (35.0-46.0) Mean Corpuscular Volume 92.3fL (81-100) Mean Corpuscular Hemoglobin 30.9pg (27.0-35.0) Mean Corpuscular Hemoglobin Concent 33.5% (32.0-37.0) Red Cell Distribution Width 13.5% (12.3-15.4) Platelet Count 168bil/L (150-400) Neutrophils (%) (Auto) 63.3% (40-74) Lymphocytes (%) (Auto) 23.9% (14-46) Monocytes (%) (Auto) 9.4% (4-12) Eosinophils (%) (Auto) 2.7% (0-5) Basophils (%) (Auto) 0.5% (0-3) Sodium Level 142mEq/L (134-144) Potassium Level 4.2mEq/L (3.5-5.2) Chloride Level 103mEq/L (97-108) Carbon Dioxide Level 29mmol/L (18-29) Blood Urea Nitrogen 25mg/dL (8-27) Creatinine 1.13mg/dL (0.57-1.00) Estimat Glomerular Filtration Rate 67mL/min (>59) Glucose Level 132mg/dL (60-99) Calcium Level 8.6mg/dL (8.5-10.1) Triglycerides Level 119mg/dL (0-149) Cholesterol Level 141mg/dL (100-199) LDL Cholesterol, Calculated 68.200mg/dL (0-99) VLDL Cholesterol 23.800mg/dL HDL Cholesterol 49mg/dL (>39) Cholesterol/HDL Ratio 2.88 (0.0-4.4) Test 06/27/17 05:10 Prothrombin Time 22.3sec (8.1-12.5) Prothromb Time International Ratio 2.05ratio Discharge Medications Discharge Medications ([Ergocalciferol ]) 50,000 UNITS PO WEEKLY (Reported) ([Fiber 0.52 G Caps]) 1 CAPSULE PO BID (Reported) Albuterol HFA (Proair HFA) 8.5 Gm Hfa.aer.ad 2 PUFFS INH BID (Reported) Aspirin (Aspirin) 81 Mg Tablet 81 MG PO DAILY (Reported) Atorvastatin Calcium (Atorvastatin Calcium) 80 Mg Tablet 80 MG PO HS (Reported) Digoxin (Digoxin) 125 Mcg Tablet 62.5 MCG PO DAILY (Reported) Fluoxetine (Fluoxetine) 40 Mg Capsule 40 MG PO DAILY (Reported) Furosemide (Lasix) 40 Mg Tablet 40 MG PO DAILY (Reported) Glimepiride (Glimepiride) 1 Mg Tablet 1 MG PO BID (Reported) Isosorbide MN ER (Isosorbide MN ER) 30 Mg Tab.er.24h 30 MG PO DAILY (Reported) Levothyroxine (Levothyroxine) 25 Mcg Tablet 25 MCG PO DAILY (Reported) Metoprolol Tartrate (Metoprolol Tartrate) 100 Mg Tablet 50 MG PO BID (Reported) Potassium Chloride ER (Klor-Con M20) 20 Meq Tablet 20 MEQ PO DAILY (Reported) Warfarin Sodium (Warfarin Sodium) 5 Mg Tablet 5 MG PO Mon, Wed, Fri (Reported) Warfarin Sodium (Warfarin Sodium) 5 Mg Tablet 2.5 MG PO , , Sa, [place] ( Reported) As needed Acetaminophen (Acetaminophen) 325 Mg Tablet 650 MG PO Q4H PRN PRN For Pain ( Reported) Hydrocodone-Acetaminophen 10-325 mg (Hydrocodone-Acetaminophen 10-325 mg) 1 Each Tablet 1 TAB PO Q6Hrs PRN PRN For Pain (Reported) Nitroglycerin SL (Nitroglycerin SL) 0.4 Mg Tab.subl 0.4 MG SL PRN For Chest Pain (Reported) Followup Plan Disposition: Home Discharge Diet: Low fat, Low Sodium, Heart Healthy Discharge Activity: No restrictions Patient Instructions You were hospitalized because of chest pain, your serial blood works, EKG and stress test didn't show any signs of heart attack. Please follow up with your primary doctor in 1-2weeks Follow-up Provider: Maci Ruiz MD Follow-up with PCP in: 1 week Time spent 65 minutes Esther Crisostomo MD Jun 27, 2017 17:07
--- NOTE | 2017-06-27 17:44 | DRSVH ---
Caution: Report not yet finalized and possibly incomplete! PROCEDURE: TWO DAY STRESS TEST. Rest and pharmacological stress myocardial perfusion SPECT with gat ed imaging and ejection fraction RADIOPHARMACEUTICAL: 22.8 mCi of Tc-99m tetrofosmin IV at rest and 22.1 mCi of Tc-99m tetrofosmin IV at peak effect of pharmacological stress. [id number] was performed. INDICATIONS: ANGINA WITH HISTORY OF CABG. TECHNIQUE: Radiopharmaceutical was injected at peak stress test and also at rest. SPECT images were obtained. SPECT myocardial perfusion images were displayed in short axis, horizontal long axis, and vertical long axis views. Gated images were reviewed using [employer] software. COMPARISON: None. CARDIAC STRESS: A pharmacologic stress test was performed under the supervision of attending staff u sing an infusion of Lexiscan. Hemodynamic Data: There is normal blood pressure and heart rate response to pharmacologic stress. Symptoms: The patient complained of mild chest discomfort. Aminophylline: Not given. EKG: No diagnostic changes of ischemia, no ectopy. FINDINGS: Raw Data: There is good myocardial uptake of radiotracer. No significant motion artifact. Left Ventricular Function: Gated images demonstrate normal left ventricular wall thickening. No seg mental wall motion abnormalities. No transient ischemic dilation visually. Left ventricular resting end diastolic volume is 49 mL. Left ventricular stress ejection fraction is 75%; normal range is ab ove 45%. Myocardial Perfusion: There is normal distribution of activity in the right and left ventricular sia cardium. A moderate fixed inferoapical defect is noted. This is consistent with prior infarction. No areas of ischemia are identified. IMPRESSION: 1. No diagnostic ST-T changes with exercise. 2. Transient chest heaviness with Lexiscan. 3. No ischemia. Fixed defect as described above. 4. Preserved left ventricular function. Dictated by: Juventino Yañez M.D. on 06/27/2017 at 16:53 Transcribed by: WOLF on 06/27/2017 at 20:43
== END 2017-06-27 16:50 | disposition home or self-care (01) ==
LOC: SED 18:58 → MPC 21:36
PROVIDERS: ADMIT Hospitalist; ATTEND Internal Medicine
DX: I25.110 Atherosclerotic heart disease of native coronary artery with unstable angina pectoris (principal); I10 Essential (primary) hypertension; R41.81 Age-related cognitive decline; E11.9 Type 2 diabetes mellitus without complications; G25.81 Restless legs syndrome; E03.9 Hypothyroidism, unspecified; I48.91 Unspecified atrial fibrillation; K21.9 Gastro-esophageal reflux disease without esophagitis; I34.0 Nonrheumatic mitral (valve) insufficiency; Z79.82 Long term (current) use of aspirin; Z95.0 Presence of cardiac pacemaker; Z95.1 Presence of aortocoronary bypass graft; Z79.01 Long term (current) use of anticoagulants; Z79.84 Long term (current) use of oral hypoglycemic drugs; Z87.891 Personal history of nicotine dependence; F32.9 Major depressive disorder, single episode, unspecified
CPT/HCPCS: 36415; 71010; 78452; 80048; 80053; 80061; 81000; 83036; 83735; 83880; 84443; 84484; 85025; 85610; 87086; 87088; 93005; 93017; 99285; A9502; G0378; J1815; J2785